=== PATIENT | male | born 1950 | race Caucasian/White ===

== ENCOUNTER 2018-02-22 04:01 | Observation (INO) | payer MEDICARE, OTHER, SELFPAY ==
[2018-02-22 04:01] VITALS: BP 134/78; PULSE 78; RESP 18; TEMP 35; O2SAT 98; BMI 30.6
--- NOTE | 2018-02-22 04:25 | CT_ITS ---
STUDY: CT BRAIN WITHOUT CONTRAST REASON FOR EXAM: Male, 67 years old. Disoriented at home, hypertension RADIATION DOSAGE (If Supplied By Facility): CTDIvol = ( 44.99 ) mGy, DLP = ( 796.11 ) mGycm TECHNIQUE: Transaxial CT imaging of the brain was performed without administration of intravenous contrast material. Individualized dose optimization techniques were used for this CT. COMPARISON: None. FINDINGS: Normal soft tissue structures. Normal calvarium. Normal size ventricles and extra-axial spaces for the patient's age. There are areas of decreased attenuation within the white matter tracts of the supratentorial brain, consistent with microvascular disease changes. Normal basal ganglia and thalami. Normal brainstem. Normal cerebellum. There is no intracranial hemorrhage. There are no findings of an acute ischemic infarction. Chronic right sphenoid sinus disease. CT/Brain/Head without Contrast IMPRESSION: No CT evidence of acute infarct or hemorrhage. Comment: If there is clinical concern for hyperacute ischemia that is not yet apparent by CT, MRI should be considered if possible. Electronically Signed: Sarbjit Partida MD at 5:08 EDT Tel , Service support ,
--- NOTE | 2018-02-22 04:25 | RAD_ITS ---
STUDY: X-RAY CHEST REASON FOR EXAM: Male, 67 years old. Syncope TECHNIQUE: Single frontal view of the chest. COMPARISON: None. FINDINGS: Azygos lobe. The lungs are clear and expanded. There is no demonstrated pleural abnormality. Normal size heart. Normal mediastinum and linh. Normal visualized pulmonary arteries. Normal visualized aortic arch and descending thoracic aorta. Normal visualized thoracic spine. Normal visualized ribs, clavicles, and shoulders. There is no demonstrated abnormality of the visualized soft tissue structures of the upper abdomen. RAD/Chest 1 View (Portable) IMPRESSION: Normal x-ray examination of the chest. Electronically Signed: Sarbjit Partida MD at 4:41 EDT Tel , Service support ,
--- NOTE | 2018-02-22 04:25 | EKG12_ITS ---
Test Reason : SYNCOPE Blood Pressure : / mmHG Vent. Rate : 077 BPM Atrial Rate : 077 BPM P-R Int : 196 ms QRS Dur : 084 ms QT Int : 406 ms P-R-T Axes : 038 012 008 degrees QTc Int : 459 ms Normal sinus rhythm Inferior infarct , age undetermined , cannot be excluded Abnormal ECG Confirmed by ISAIAH ALMEIDA, NASREEN ([id number]), slot editor OSMAR ELIZABETH ([id number] on 02/25/2018 10:20:29 AM Referred By: DEVON Confirmed By:NASREEN COLON MD
--- NOTE | 2018-02-22 04:31 | ED.RN ---
NO OLD EKGS IN MUSE
[2018-02-22 05:01] VITALS: BP 144/86; PULSE 70; RESP 20; O2SAT 99
[2018-02-22] MEDS: Aspirin 81 MG TAB.CHEW 324 MG PO (05:01)
[2018-02-22 05:11] LABS: Absolute Lymphocyte Count 1.75 X10^3/ul (0.83-4.51); Basophil# 0.03 X10^3/uL; Basophil% 0.5 % (0-1); Eosinophils% 3.1 % (0-5); Hematocrit 41.9 % (40-54); Lymphocyte # 1.75 X10^3/ul (4.0); Lymphocyte % 27.6 % (19-41); Mean Corp Hgb Conc 33.4 g/gl (32-36); Mean Corpuscular Hgb 31.3 pg (27.0-32.0); Mean Corpuscular Volume 93.5 fL (80-94); Mean Platelet Vol. 9.6 fl (6.2-12.0); Monocyte# 0.34 X10^3/uL; Monocyte% 5.4 % (0-10); Neutrophil # 4.02 X10^3/uL (2.7-7.7); Neutrophil % 63.2 % (47-70); Platelet Count 204 K/mm3 (150-450); RBC Distribution Width CV 13.4 % (11.6-14.6); RBC Distribution Width SD 44.7 fl (35.1-43.9); Red Blood Count 4.48 M/mm3 (4.6-6.2); White Blood Count 6.4 K/mm3 (4.4-11.0)
[2018-02-22 05:25] LABS: POSITIVE COUNT NO; POSITIVE DIFFERENTIAL NO; POSITIVE MORPHOLOGY NO
--- NOTE | 2018-02-22 05:27 | ED.VIS.GEN ---
History of Present Illness Chief Complaint: Syncope Informant: Patient Onset: Hours - 1 Narrative: Patient was awakened at about 3 AM with left upper extremity discomfort that did not get worse with movement. He had no chest discomfort or dyspnea at the time, but he went to the bathroom and while sitting, without straining or Valsalva maneuver, he had a near syncopal episode associated with a left sided headache, which is still present. He did not fully lose consciousness. He felt disoriented, and still does feel somewhat disoriented although he is not frankly confused. States he had a negative stress test and an echocardiogram that showed a hole in the heart and he is not sure what is to happen with follow-up. This was done in [place], he saw a correctional maintenance technician that his brother sees. The was concerned tonight about his episode, and called EMS. They performed an EKG which showed a heart rate at 54, he was symptomatic and feeling near syncopal at this time so they gave him atropine 1 mg, and the patient quickly felt much better. At this time his heart rate is in 70s. - Past Medical History (1) Hypertension Status: Chronic (2) Hyperlipidemia Status: Chronic Past Medical History - Allergies and Home Meds Allergies/Adverse Reactions: Allergies No Known Allergies Allergy (Verified 04/15/16 05:02) Primary Care Physician: Leo Doty DO [Primary Care Provider] - Lives: Spouse/ Significant Other Smoking Status: Never smoker Alcohol: None Drugs: None Review of Systems General: Reports: Malaise, Sweats. Denies: Chills, Fever Eyes: Reports: Blurred Vision - bilaterally. Denies: Diplopia ENT: Denies: Bilateral ear pain, Rhinorrhea, Sore throat Cardiovascular: Denies: Chest pain, Palpitations, Heart racing Respiratory: Denies: Dyspnea, Cough, Dyspnea on exertion Gastrointestinal: Denies: Abdominal pain, Nausea, Vomiting, Diarrhea, Melena, Hematochezia Genitourinary: Denies: Dysuria, Hematuria, Frequency Musculoskeletal: Denies: Neck pain, Back pain, Swelling, Extremity Pain Skin: Denies: Rash, Wounds Neurological: Reports: Headache, - - disoriented. Denies: Weakness - nothing focal, Numbness Endocrine: Denies: Polyuria, Polydipsia Allergy: Denies: Swelling of the mouth, Swelling of the tongue Physical Exam Vital Signs/Narrative: Vital Signs Temp Pulse Resp BP Pulse Ox 02/22/18 04:01 95.0 F L 78 18 134/78 H 98 Inital Vital Signs reviewed: Yes General: Well nourished, Well developed Head: Normocephalic, Atraumatic Eyes: Perrl, EOMI ENT: Moist mucous membranes, No rhinorrhea Neck: Supple, Nontender, No lymphadenopathy, No JVD Cardiovascular: Regular rate, Regular rhythm, No murmurs Respiratory: No distress, CTA bilaterally, Chest nontender Abdomen: Soft, Nontender, Nondistended, Normal bowel sounds Back: Nontender, Normal Inspection Extremities: Nontender, No edema Skin: Normal color, No rash Neurological: Alert, Oriented x3 - including correct month and age, Cranial nerves II-XII grossly intact, Normal Strength, Normal Sensation, Normal DTR, - - No aphasia or dysarthria, no modesto-inattention. Nml FTN. NIHSS 0. Psychological: - - anxious Diagnostic/Tx/Re-eval Impressions Brain CT 02/22/18 04:25 IMPRESSION: No CT evidence of acute infarct or hemorrhage. Comment: If there is clinical concern for hyperacute ischemia that is not yet apparent by CT, MRI should be considered if possible. Electronically Signed: Sarbjit Partida MD at 5:08 EDT Tel , Service support , Chest X-Ray 02/22/18 04:25 IMPRESSION: Normal x-ray examination of the chest. Electronically Signed: Sarbjit Partida MD at 4:41 EDT Tel , Service support , 02/22/18 04:25 Brain/Head without Contrast [CT] Stat Chest 1 View (Portable) [RAD] Stat Laboratory Results 02/22/18 02/22/18 02/22/18 04:14 04:14 04:55 WBC Cancelled Corrected WBC Cancelled RBC Cancelled Hgb Cancelled Hct Cancelled MCV Cancelled MCH Cancelled MCHC Cancelled RDW Cancelled RDW Differential Cancelled Plt Count Cancelled MPV Cancelled Immature Gran % (Auto) Cancelled Neut % (Auto) Cancelled Lymph % (Auto) Cancelled [place] % (Auto) Cancelled Eos % (Auto) Cancelled Baso % (Auto) Cancelled Immature Gran # (Auto) Cancelled Absolute Neuts (auto) Cancelled Absolute Lymphs (auto) Cancelled Absolute Monos (auto) Cancelled Total Counted Cancelled Neutrophils % (Manual) Cancelled Band Neutrophils % Cancelled Lymphocytes % (Manual) Cancelled Monocytes % (Manual) Cancelled Eosinophils % (Manual) Cancelled Basophils % (Manual) Cancelled Metamyelocytes % Cancelled Myelocytes % Cancelled Promyelocytes % Cancelled Blast Cells % Cancelled Plasma Cell % (Manual) Cancelled Other Cells % Cancelled Lymphocytes # Cancelled Nucleated RBCs/100 WBC Cancelled Differential Comment Cancelled Diff Path Review Cancelled Hypersegmented Neuts Cancelled Atypical Lymphocytes Cancelled Reactive Lymphocytes Cancelled Smudge Cells Cancelled Eosinophilia # Cancelled Basophilia # Cancelled Toxic Granulation Cancelled Dohle Bodies Cancelled Florecita Rods Cancelled Platelet Estimate Cancelled Plt Morphology Comment Cancelled RBC Morphology Cancelled Polychromasia Cancelled Hypochromasia Cancelled Poikilocytosis Cancelled Basophilic Stippling Cancelled Anisocytosis Cancelled Microcytosis Cancelled Macrocytosis Cancelled Spherocytes Cancelled Sickle Cells Cancelled Target Cells Cancelled Tear Drop Cells Cancelled Ovalocytes Cancelled Stomatocytes Cancelled Banks-[place]erry Bodies Cancelled [place] Cells Cancelled Bite Cells Cancelled Acanthocytes (Spur) Cancelled Rouleaux Cancelled Schistocytes Cancelled Sodium Cancelled 143 Potassium Cancelled 4.3 Chloride Cancelled 108 H Carbon Dioxide Cancelled 26.0 Anion Gap Cancelled 9 BUN Cancelled 23 H Creatinine Cancelled 1.24 Estim Creat Clear Calc Cancelled 59.88 Est GFR (MDRD) Af Amer Cancelled 74 Est GFR (MDRD) Non-Af Cancelled 61 BUN/Creatinine Ratio Cancelled 18.5 Glucose Cancelled 130 H Calcium Cancelled 8.8 Troponin I Cancelled < 0.015 02/22/18 04:55 WBC 6.4 Corrected WBC RBC 4.48 L Hgb 14.0 Hct 41.9 MCV 93.5 MCH 31.3 MCHC 33.4 RDW 13.4 RDW Differential 44.7 H Plt Count 204 MPV 9.6 Immature Gran % (Auto) 0.200 Neut % (Auto) 63.2 Lymph % (Auto) 27.6 [place] % (Auto) 5.4 Eos % (Auto) 3.1 Baso % (Auto) 0.5 Immature Gran # (Auto) Absolute Neuts (auto) 4.0 Absolute Lymphs (auto) 1.75 Absolute Monos (auto) Total Counted Not Reportable Neutrophils % (Manual) Band Neutrophils % Lymphocytes % (Manual) Monocytes % (Manual) Eosinophils % (Manual) Basophils % (Manual) Metamyelocytes % Myelocytes % Promyelocytes % Blast Cells % Plasma Cell % (Manual) Other Cells % Lymphocytes # Nucleated RBCs/100 WBC Differential Comment Diff Path Review Hypersegmented Neuts Atypical Lymphocytes Reactive Lymphocytes Smudge Cells Eosinophilia # Basophilia # Toxic Granulation Dohle Bodies Florecita Rods Platelet Estimate Plt Morphology Comment RBC Morphology Polychromasia Hypochromasia Poikilocytosis Basophilic Stippling Anisocytosis Microcytosis Macrocytosis Spherocytes Sickle Cells Target Cells Tear Drop Cells Ovalocytes Stomatocytes Banks-Terry Bodies [place] Cells Bite Cells Acanthocytes (Spur) Rouleaux Schistocytes Sodium Potassium Chloride Carbon Dioxide Anion Gap BUN Creatinine Estim Creat Clear Calc Est GFR (MDRD) Af Amer Est GFR (MDRD) Non-Af BUN/Creatinine Ratio Glucose Calcium Troponin I - Rhythm Strip Rhythm Strip: Sinus Rhythm Rate: 78 Ectopy: None - EKG Initial EKG Interpretation: Sinus Rhythm, No Acute Injury Pattern, - - pathologic Q waves in III only. otherwise, normal EKG. Prior: Unchanged - w/r/t EMS EKG -- exactly the same except for HR 54. - Medical Decision Making Labs are fairly unremarkable, his EKG is unremarkable, his EMS EKG showed sinus bradycardia with no changes in morphology or signs of an acute injury, his current EKG shows very similar morphology and intervals except for heart rate in the 70s. CT head shows no subarachnoid hemorrhage or other acute abnormality, chest x-ray is unremarkable. He is gradually feeling better with IV fluids here in the ER. We will attempt to get records from the hospital in [place] that he was at, as we admit him to observation on telemetry. Discussed with Dr. Seay. ED Disposition - Plan for ED Patient: Disposition: Acute Care Hospital [facility] Chief Complaint: Syncope Diagnosis: Near syncope, Symptomatic bradycardia, Anginal equivalent Referrals: Leo Doty DO [Primary Care Provider] -
--- NOTE | 2018-02-22 05:31 | ED.DCSUM_ITS ---
History of Present Illness Chief Complaint: Syncope Informant: Patient Onset: Hours - 1 Narrative: Patient was awakened at about 3 AM with left upper extremity discomfort that did not get worse with movement. He had no chest discomfort or dyspnea at the time, but he went to the bathroom and while sitting, without straining or Valsalva maneuver, he had a near syncopal episode associated with a left sided headache, which is still present. He did not fully lose consciousness. He felt disoriented, and still does feel somewhat disoriented although he is not frankly confused. States he had a negative stress test and an echocardiogram that showed a hole in the heart and he is not sure what is to happen with follow- up. This was done in [place], he saw a preparation center coordinator that his brother sees. The was concerned tonight about his episode, and called EMS. They performed an EKG which showed a heart rate at 54, he was symptomatic and feeling near syncopal at this time so they gave him atropine 1 mg, and the patient quickly felt much better. At this time his heart rate is in 70s. - Past Medical History (1) Hypertension Status: Chronic (2) Hyperlipidemia Status: Chronic Past Medical History - Allergies and Home Meds Allergies/Adverse Reactions: Allergies No Known Allergies Allergy (Verified 04/15/16 05:02) Primary Care Physician: Leo Doty DO [Primary Care Provider] - Lives: Spouse/ Significant Other Smoking Status: Never smoker Alcohol: None Drugs: None Review of Systems General: Reports: Malaise, Sweats. Denies: Chills, Fever Eyes: Reports: Blurred Vision - bilaterally. Denies: Diplopia ENT: Denies: Bilateral ear pain, Rhinorrhea, Sore throat Cardiovascular: Denies: Chest pain, Palpitations, Heart racing Respiratory: Denies: Dyspnea, Cough, Dyspnea on exertion Gastrointestinal: Denies: Abdominal pain, Nausea, Vomiting, Diarrhea, Melena, Hematochezia Genitourinary: Denies: Dysuria, Hematuria, Frequency Musculoskeletal: Denies: Neck pain, Back pain, Swelling, Extremity Pain Skin: Denies: Rash, Wounds Neurological: Reports: Headache, - - disoriented. Denies: Weakness - nothing focal, Numbness Endocrine: Denies: Polyuria, Polydipsia Allergy: Denies: Swelling of the mouth, Swelling of the tongue Physical Exam Vital Signs/Narrative: Vital Signs Temp Pulse Resp BP Pulse Ox 02/22/18 04:01 95.0 F L 78 18 134/78 H 98 Inital Vital Signs reviewed: Yes General: Well nourished, Well developed Head: Normocephalic, Atraumatic Eyes: Perrl, EOMI ENT: Moist mucous membranes, No rhinorrhea Neck: Supple, Nontender, No lymphadenopathy, No JVD Cardiovascular: Regular rate, Regular rhythm, No murmurs Respiratory: No distress, CTA bilaterally, Chest nontender Abdomen: Soft, Nontender, Nondistended, Normal bowel sounds Back: Nontender, Normal Inspection Extremities: Nontender, No edema Skin: Normal color, No rash Neurological: Alert, Oriented x3 - including correct month and age, Cranial nerves II-XII grossly intact, Normal Strength, Normal Sensation, Normal DTR, - - No aphasia or dysarthria, no modesto-inattention. Nml FTN. NIHSS 0. Psychological: - - anxious Diagnostic/Tx/Re-eval Impressions Brain CT 02/22/18 04:25 IMPRESSION: No CT evidence of acute infarct or hemorrhage. Comment: If there is clinical concern for hyperacute ischemia that is not yet apparent by CT, MRI should be considered if possible. Electronically Signed: Sarbjit Partida MD at 5:08 EDT Tel , Service support , Chest X-Ray 02/22/18 04:25 IMPRESSION: Normal x-ray examination of the chest. Electronically Signed: Srabjit Partida MD at 4:41 EDT Tel , Service support , 02/22/18 04:25 Brain/Head without Contrast [CT] Stat Chest 1 View (Portable) [RAD] Stat Laboratory Results 02/22/18 02/22/18 02/22/18 04:14 04:14 04:55 WBC Cancelled Corrected WBC Cancelled RBC Cancelled Hgb Cancelled Hct Cancelled MCV Cancelled MCH Cancelled MCHC Cancelled RDW Cancelled RDW Differential Cancelled Plt Count Cancelled MPV Cancelled Immature Gran % (Auto) Cancelled Neut % (Auto) Cancelled Lymph % (Auto) Cancelled [place] % (Auto) Cancelled Eos % (Auto) Cancelled Baso % (Auto) Cancelled Immature Gran # (Auto) Cancelled Absolute Neuts (auto) Cancelled Absolute Lymphs (auto) Cancelled Absolute Monos (auto) Cancelled Total Counted Cancelled Neutrophils % (Manual) Cancelled Band Neutrophils % Cancelled Lymphocytes % (Manual) Cancelled Monocytes % (Manual) Cancelled Eosinophils % (Manual) Cancelled Basophils % (Manual) Cancelled Metamyelocytes % Cancelled Myelocytes % Cancelled Promyelocytes % Cancelled Blast Cells % Cancelled Plasma Cell % (Manual) Cancelled Other Cells % Cancelled Lymphocytes # Cancelled Nucleated RBCs/100 WBC Cancelled Differential Comment Cancelled Diff Path Review Cancelled Hypersegmented Neuts Cancelled Atypical Lymphocytes Cancelled Reactive Lymphocytes Cancelled Smudge Cells Cancelled Eosinophilia # Cancelled Basophilia # Cancelled Toxic Granulation Cancelled Dohle Bodies Cancelled Florecita Rods Cancelled Platelet Estimate Cancelled Plt Morphology Comment Cancelled RBC Morphology Cancelled Polychromasia Cancelled Hypochromasia Cancelled Poikilocytosis Cancelled Basophilic Stippling Cancelled Anisocytosis Cancelled Microcytosis Cancelled Macrocytosis Cancelled Spherocytes Cancelled Sickle Cells Cancelled Target Cells Cancelled Tear Drop Cells Cancelled Ovalocytes Cancelled Stomatocytes Cancelled Banks-[place] Bodies Cancelled [place] Cells Cancelled Bite Cells Cancelled Acanthocytes (Spur) Cancelled Rouleaux Cancelled Schistocytes Cancelled Sodium Cancelled 143 Potassium Cancelled 4.3 Chloride Cancelled 108 H Carbon Dioxide Cancelled 26.0 Anion Gap Cancelled 9 BUN Cancelled 23 H Creatinine Cancelled 1.24 Estim Creat Clear Calc Cancelled 59.88 Est GFR (MDRD) Af Amer Cancelled 74 Est GFR (MDRD) Non-Af Cancelled 61 BUN/Creatinine Ratio Cancelled 18.5 Glucose Cancelled 130 H Calcium Cancelled 8.8 Troponin I Cancelled < 0.015 02/22/18 04:55 WBC 6.4 Corrected WBC RBC 4.48 L Hgb 14.0 Hct 41.9 MCV 93.5 MCH 31.3 MCHC 33.4 RDW 13.4 RDW Differential 44.7 H Plt Count 204 MPV 9.6 Immature Gran % (Auto) 0.200 Neut % (Auto) 63.2 Lymph % (Auto) 27.6 [place] % (Auto) 5.4 Eos % (Auto) 3.1 Baso % (Auto) 0.5 Immature Gran # (Auto) Absolute Neuts (auto) 4.0 Absolute Lymphs (auto) 1.75 Absolute Monos (auto) Total Counted Not Reportable Neutrophils % (Manual) Band Neutrophils % Lymphocytes % (Manual) Monocytes % (Manual) Eosinophils % (Manual) Basophils % (Manual) Metamyelocytes % Myelocytes % Promyelocytes % Blast Cells % Plasma Cell % (Manual) Other Cells % Lymphocytes # Nucleated RBCs/100 WBC Differential Comment Diff Path Review Hypersegmented Neuts Atypical Lymphocytes Reactive Lymphocytes Smudge Cells Eosinophilia # Basophilia # Toxic Granulation Dohle Bodies Florecita Rods Platelet Estimate Plt Morphology Comment RBC Morphology Polychromasia Hypochromasia Poikilocytosis Basophilic Stippling Anisocytosis Microcytosis Macrocytosis Spherocytes Sickle Cells Target Cells Tear Drop Cells Ovalocytes Stomatocytes Banks-[place] Bodies [place] Cells Bite Cells Acanthocytes (Spur) Rouleaux Schistocytes Sodium Potassium Chloride Carbon Dioxide Anion Gap BUN Creatinine Estim Creat Clear Calc Est GFR (MDRD) Af Amer Est GFR (MDRD) Non-Af BUN/Creatinine Ratio Glucose Calcium Troponin I - Rhythm Strip Rhythm Strip: Sinus Rhythm Rate: 78 Ectopy: None - EKG Initial EKG Interpretation: Sinus Rhythm, No Acute Injury Pattern, - - pathologic Q waves in III only. otherwise, normal EKG. Prior: Unchanged - w/r/t EMS EKG -- exactly the same except for HR 54. - Medical Decision Making Labs are fairly unremarkable, his EKG is unremarkable, his EMS EKG showed sinus bradycardia with no changes in morphology or signs of an acute injury, his current EKG shows very similar morphology and intervals except for heart rate in the 70s. CT head shows no subarachnoid hemorrhage or other acute abnormality, chest x-ray is unremarkable. He is gradually feeling better with IV fluids here in the ER. We will attempt to get records from the hospital in [place] that he was at, as we admit him to observation on telemetry. Discussed with Dr. Seay. ED Disposition - Plan for ED Patient: Disposition: Acute Care Hospital [facility] Chief Complaint: Syncope Diagnosis: Near syncope, Symptomatic bradycardia, Anginal equivalent Referrals: Leo Doty DO [Primary Care Provider] -
[2018-02-22 05:33] LABS: Anion Gap 9 (5-15); BUN 23 mg/dL (7-18); BUN/Creat Ratio 18.5 RATIO (10-20); Calcium,Total 8.8 mg/dL (8.5-10.1); Chloride 108 mmol/L (98-107); Creatinine, Serum 1.24 mg/dL (0.70-1.30); EST Glomerular Filtration Rate 61 mL/min (>60); Est Glom Filt Rate - Afr Amer 74 mL/min (>60); Estimated Creatinine Clearance 59.88 ml/min; Glucose 130 mg/dL (74-106); Potassium 4.3 mmol/L (3.5-5.1); Sodium Level 143 mmol/L (136-145)
--- NOTE | 2018-02-22 05:45 | HP.PCM_ITS ---
Problem List (1) Near syncope Status: Acute History of Present Illness Date of Admission: 02/22/18 Chief Complaint: Near syncope The patient is a 67 year old M with a history of hypertension, hyperlipidemia and abdominal aortic aneurysm. He was admitted through the ED on 02/22/2018 with complaint of near syncope in the early hours of the morning. According to patient, around 3 AM he was woken up with a headache which is global in nature. He decided to go use the restroom and while sitting on the toilet, he felt lightheaded and dizzy and slumped to the floor. He did not lose consciousness but said he felt very very weak. He denied any antecedent fever or chills, any cough or chest pain, any palpitations, any shortness of breath, any diarrhea vomiting. His called the EMS and on arrival, they found him to be bradycardic and hypotensive. He was given a dose of atropine and bradycardia resolved. According to patient, a few weeks ago he saw a internal communications intern in [place] to follow-up his abdominal aortic aneurysm and he had a 2D echo done with bubble contrast and was told that he had a hole in heart. He states he was referred to a neurologist subsequently but is yet to see him. Vitals in the ED was significant for pulse rate of 70 and blood pressure of 1 4486 and he was saturating 99% on a liter of oxygen. Brain CT was negative for any acute intracranial pathology. CBC and BMP done within normal limits. Is been admitted to be worked up for near syncope. [] Past Medical History Past Medical History (Chronic Problems): Chronic Problems Hypertension (Chronic) Hyperlipidemia (Chronic) Allergies No Known Allergies Allergy (Verified 04/15/16 05:02) Home Medications: Ambulatory Orders Medication Instructions Recorded Atorvastatin Calcium [Lipitor] 20 mg PO QHS 04/12/16 Losartan/Hydrochlorothiazide 1 each PO DAILY 04/12/16 [Losartan-Hctz 50-12.5 mg Tab] Aspirin [Aspirin, Baby] 81 mg PO DAILY@0800 02/22/18 Surgical History: tonsillectomy - in childhood Psychiatric History: No pertinent psych hx Lives: Spouse/ Significant Other Smoking Status: Never smoker Alcohol: None Drugs: None - *Family History Sibling History Items: High Cholesterol, Heart Disease, Stroke Paternal History Items: Heart Disease, Hypertension Review of Systems Constitutional: Reports: Malaise, Weakness. Denies: Chills, Fever, Weight Change Eyes: Denies: Blurred vision HEENT: Denies: Head Aches, Sinus Congestion, Sinus Drainage Cardiovascular: Reports: Light Headedness, - - near syncope. Denies: Chest Pain, Chest Pressure, Chest Tightness, Edema, Heaviness, Orthopnea, Palpitations, Paroxysmal Noc. Dyspnea, Syncope Respiratory: Denies: Cough, Shortness of Breath, Shortness of breath at rest, Shortness of breath upon exertion, Sputum production Gastrointestinal: Denies: Abdominal Pain, Nausea, Vomiting Genitourinary: Denies: Dysuria Musculoskeletal: Denies: Joint Pain, Joint Tenderness Skin: Denies: Rash, Wounds Neurological: Reports: Confusion, - - near syncope. Denies: Focal weakness, Numbness, Tingling Psychiatric: Denies: Anxiety, Depression, Homicidal Ideations, Suicidal Ideations Hematologic/ Lymphatic: Denies: Easy Bruising, Easy Bleeding VTE Information - Inpt Only VTE Present on Admission: No VTE Pharm Prophylaxis ordered?: Yes Patient Problems: Active and Suspected Problems Near syncope (Acute) Symptomatic bradycardia (Acute) Anginal equivalent (Acute) Near syncope (Acute) - Physical Exam General: Alert, Oriented x3, Cooperative, No apparent distress HEENT: Atraumatic, PERRLA, EOMI, Normocephalic Oral: Moist Mucosa Neck: Supple, No JVD, Negative Carotid Bruits Lungs: Clear to auscultation, Normal air movement, No rhonchi, No wheeze, No rales Cardiovascular: Regular rate, Regular Rhythm, Normal S1, Normal S2, No murmurs Abdomen: Bowel Sounds Present, Soft, Non Tender, Non-Distended, No Hepato- splenomegaly Extremities: No clubbing, No cyanosis, No edema, Capillary Refill Less than 3 Seconds Skin: No rashes, No breakdown Musculoskeletal: No Tenderness to Palpation of Joints or Extremities Lymphatic: No Cervical, Supraclavicular, or Inguinal Adenopathy Neurological: Cranial nerves II-XII grossly intact, Neuro grossly intact, Motor Exam 5/5 strength throughout Psych/Mental Status: Normal Affect, Appropriate, Alert and oriented to time, place, person, mood and affect Vital Signs Temp Pulse Resp BP Pulse Ox 95.0 F L 70 20 H 144/86 H 99 02/22/18 04:01 02/22/18 05:01 02/22/18 05:01 02/22/18 05:01 02/22/18 05:01 Oxygen Delivery Method Room Air Weight: 219 lb 9.286 oz Body Mass Index (BMI) 30.6 Laboratory Tests Past 24 Hrs 02/22/18 02/22/18 02/22/18 04:14 04:14 04:55 WBC Cancelled Corrected WBC Cancelled RBC Cancelled Hgb Cancelled Hct Cancelled MCV Cancelled MCH Cancelled MCHC Cancelled RDW Cancelled RDW Differential Cancelled Plt Count Cancelled MPV Cancelled Immature Gran % (Auto) Cancelled Neut % (Auto) Cancelled Lymph % (Auto) Cancelled [place]uster % (Auto) Cancelled Eos % (Auto) Cancelled Baso % (Auto) Cancelled Immature Gran # (Auto) Cancelled Absolute Neuts (auto) Cancelled Absolute Lymphs (auto) Cancelled Absolute Monos (auto) Cancelled Total Counted Cancelled Neutrophils % (Manual) Cancelled Band Neutrophils % Cancelled Lymphocytes % (Manual) Cancelled Monocytes % (Manual) Cancelled Eosinophils % (Manual) Cancelled Basophils % (Manual) Cancelled Metamyelocytes % Cancelled Myelocytes % Cancelled Promyelocytes % Cancelled Blast Cells % Cancelled Plasma Cell % (Manual) Cancelled Other Cells % Cancelled Lymphocytes # Cancelled Nucleated RBCs/100 WBC Cancelled Differential Comment Cancelled Diff Path Review Cancelled Hypersegmented Neuts Cancelled Atypical Lymphocytes Cancelled Reactive Lymphocytes Cancelled Smudge Cells Cancelled Eosinophilia # Cancelled Basophilia # Cancelled Toxic Granulation Cancelled Dohle Bodies Cancelled Florecita Rods Cancelled Platelet Estimate Cancelled Plt Morphology Comment Cancelled RBC Morphology Cancelled Polychromasia Cancelled Hypochromasia Cancelled Poikilocytosis Cancelled Basophilic Stippling Cancelled Anisocytosis Cancelled Microcytosis Cancelled Macrocytosis Cancelled Spherocytes Cancelled Sickle Cells Cancelled Target Cells Cancelled Tear Drop Cells Cancelled Ovalocytes Cancelled Stomatocytes Cancelled [place] Bodies Cancelled Sarmad Cells Cancelled Bite Cells Cancelled Acanthocytes (Spur) Cancelled Rouleaux Cancelled Schistocytes Cancelled Sodium Cancelled 143 Potassium Cancelled 4.3 Chloride Cancelled 108 H Carbon Dioxide Cancelled 26.0 Anion Gap Cancelled 9 BUN Cancelled 23 H Creatinine Cancelled 1.24 Estim Creat Clear Calc Cancelled 59.88 Est GFR (MDRD) Af Amer Cancelled 74 Est GFR (MDRD) Non-Af Cancelled 61 BUN/Creatinine Ratio Cancelled 18.5 Glucose Cancelled 130 H Calcium Cancelled 8.8 Troponin I Cancelled < 0.015 02/22/18 04:55 WBC 6.4 Corrected WBC RBC 4.48 L Hgb 14.0 Hct 41.9 MCV 93.5 MCH 31.3 MCHC 33.4 RDW 13.4 RDW Differential 44.7 H Plt Count 204 MPV 9.6 Immature Gran % (Auto) 0.200 Neut % (Auto) 63.2 Lymph % (Auto) 27.6 Custer % (Auto) 5.4 Eos % (Auto) 3.1 Baso % (Auto) 0.5 Immature Gran # (Auto) Absolute Neuts (auto) 4.0 Absolute Lymphs (auto) 1.75 Absolute Monos (auto) Total Counted Not Reportable Neutrophils % (Manual) Band Neutrophils % Lymphocytes % (Manual) Monocytes % (Manual) Eosinophils % (Manual) Basophils % (Manual) Metamyelocytes % Myelocytes % Promyelocytes % Blast Cells % Plasma Cell % (Manual) Other Cells % Lymphocytes # Nucleated RBCs/100 WBC Differential Comment Diff Path Review Hypersegmented Neuts Atypical Lymphocytes Reactive Lymphocytes Smudge Cells Eosinophilia # Basophilia # Toxic Granulation Dohle Bodies Florecita Rods Platelet Estimate Plt Morphology Comment RBC Morphology Polychromasia Hypochromasia Poikilocytosis Basophilic Stippling Anisocytosis Microcytosis Macrocytosis Spherocytes Sickle Cells Target Cells Tear Drop Cells Ovalocytes Stomatocytes [place] Bodies Sarmad Cells Bite Cells Acanthocytes (Spur) Rouleaux Schistocytes Sodium Potassium Chloride Carbon Dioxide Anion Gap BUN Creatinine Estim Creat Clear Calc Est GFR (MDRD) Af Amer Est GFR (MDRD) Non-Af BUN/Creatinine Ratio Glucose Calcium Troponin I Diagnostic Data Brain CT 02/22/18 04:25 IMPRESSION: No CT evidence of acute infarct or hemorrhage. Comment: If there is clinical concern for hyperacute ischemia that is not yet apparent by CT, MRI should be considered if possible. Electronically Signed: Sarbjit Partida MD at 5:08 EDT Tel , Service support , Chest X-Ray 02/22/18 04:25 IMPRESSION: Normal x-ray examination of the chest. Electronically Signed: Sarbjit Partida MD at 4:41 EDT Tel , Service support , Assessment/Plan All Active Problems Near syncope (Acute) Symptomatic bradycardia (Acute) Anginal equivalent (Acute) Near syncope (Acute) 67 y/o male presenting with a complaint of near syncope 1.Near syncope due to bradycardia * HR was down in 50s when EMS arrived and it resolved with administration of atropine * HR has been WNL since arrival in ED * EKG showed NSR with no acute ST changes * CT head was negative for any acute intracranial pathology * admit to PCU with telemetry * got echo done recently at [facility] in [place] by Dr Kana Cordova; says he was told he has hole in heart- ?PDA; * [facility] records checked: had intermittent stress test done on 02/02/[address] [place] [address] Cordova which was negative. * 2D echo(01/01/18) accessed from [facility]- done by Dr Kana Cordvoa in [place]: * LVEF of 60-65%, with normal diastolic function, normal right atrial size and right ventricular structure and function. Positive bubble study. Mild aortic root dilatation and mild left atrial enlargement. Trivial MR and trivial TR. No evidence of aortic stenosis. * consult cardiology * NIHSS was 2 (age >69 and initial BP>140/90) * to consider getting MRI of brain and neurology consult also. * on aspirin 81mg daily * check orthostatics * fall precautions * 2. Hypertension: fairly controlled for age. On losartan/HCTZ. 3. Hyperlipidemia: on atorvastatin 20mg qhs. Will check lipid panel 4. Abdominal aortic aneurysm: chronic. Says he followed up with internal communications intern in [place] mentioned above. Told it is not big enough for surgical intervention. DVT prophylaxis: heparin Code status: full code. Code Visit Inpatient E&M: 79720 Init Hosp L3
[2018-02-22 06:53] VITALS: BMI 29.7
[2018-02-22 06:53] LABS: Cholesterol 159 mg/dL (200); High Density Lipoprotein 42 mg/dL; Triglycerides 101 mg/dL; Very Low Density Lipoprotein 20 mg/dL (5-40)
[2018-02-22 06:58] VITALS: BP 163/89; PULSE 69; PULSE 72; RESP 16; TEMP 36.4; O2SAT 97
[2018-02-22 07:03] VITALS: BMI 29.8
[2018-02-22 08:33] LABS: Hemoglobin A1c 6.1 % (4.2-6.3)
--- NOTE | 2018-02-22 10:00 | ECHOD_ITS ---
Reason For Study: Arrhythmia Procedure This was a 2D Doppler, Color Flow transthoracic echocardiogram. Exam performed portable in patient room. Left Ventricle Normal LV size. Mild concentric left ventricular hypertrophy. Left ventricular systolic function is normal. The estimated ejection fraction is 60 %. Normal diastology for age. No regional wall motion abnormalities noted. Right Ventricle Normal RV size. Normal systolic function. Atria Normal left atrium. Normal right atrium. Patent foramen ovale. Mitral Valve Normal mitral valve. Mild (1+) eccentric mitral valve insufficiency. Tricuspid Valve Normal tricuspid valve. Mild (1+) tricuspid valve insufficiency. Aortic Valve Normal aortic valve. Pulmonic Valve Normal pulmonic valve. Great Vessels Mild to moderately dilated aortic root. The pulmonary artery is normal size. Normal inferior vena cava. Pericardium/Pleural No pericardial effusion. Medication Performed a rapid injection of agitated mix of 9 cc saline and 1cc air to assess for atrial septal defect. MMode/2D Measurements & Calculations LVIDd: 4.5 cm IVSd: 1.5 cm Ao root diam: 4.1 cm LVIDs: 2.5 cm LVPWd: 1.2 cm LA dimension: 3.4 cm RVDd: 3.3 cm FS: 45.6 % LAV(MOD-bp): 50.1 ml LAV(MOD-bp) Indexed: 23.2 ml/m2 LA A4 area: 21.9 cm2 LAV(MOD-sp2): 33.9 ml LAV(MOD-sp4): 66.7 ml Time Measurements MV dec time: 0.16 sec Doppler Measurements & Calculations MV E max truman: 83.5 cm/sec Lat Peak E' Truman: 12.4 cm/sec Med Peak E' Truman: 9.6 cm/sec MV A max truman: 66.1 cm/sec E/E' lat: 6.7 E/E' med: 8.7 MV E/A: 1.3 MV V2 max: 79.6 cm/sec MV P1/2t max truman: 80.9 cm/sec Ao V2 max: 129.8 cm/sec MV max P.5 mmHg MV P1/2t: 57.0 msec Ao max P.7 mmHg MV V2 mean: 43.9 cm/sec MV dec slope: 416.0 cm/sec2 Ao V2 mean: 87.7 cm/sec MV mean P.98 mmHg MVA(P1/2t): 3.9 cm2 Ao mean P.4 mmHg MV V2 VTI: 20.6 cm Ao V2 VTI: 27.1 cm LV V1 max: 99.3 cm/sec MR max truman: 497.0 cm/sec PA V2 max: 103.0 cm/sec LV V1 max P.9 mmHg MR max P.8 mmHg LV V1 mean P.2 mmHg MR mean truman: 400.8 cm/sec LV V1 mean: 70.6 cm/sec MR mean P.1 mmHg LV V1 VTI: 22.5 cm MR VTI: 180.9 cm TR max truman: 243.1 cm/sec TR max P.6 mmHg Interpretation Summary Normal LV size. Mild concentric left ventricular hypertrophy. Left ventricular systolic function is normal. The estimated ejection fraction is 60 %. Normal diastology for age. Patent foramen ovale. Ordering Physician: Everett Mas Referring Physician: Leo Doty Performed By: Leno Avery RCS
--- NOTE | 2018-02-22 10:02 | PCM.CONS.C ---
Reason for Consult Date of Consultation: 02/22/18 Reason for Consultation: Syncope History of Present Illness: The patient is a 67 year old M with a history of hypertension, hyperlipidemia and abdominal aortic aneurysm. He was admitted through the ED on 02/22/2018 with complaint of near syncope in the early hours of the morning. According to patient, around 3 AM he was woken up with a headache which is global in nature. He decided to go use the restroom and while sitting on the toilet, he felt lightheaded and dizzy and slumped to the floor. He did not lose consciousness but said he felt very very weak. He denied any antecedent fever or chills, any cough or chest pain, any palpitations, any shortness of breath, any diarrhea vomiting. His called the EMS and on arrival, they found him to be bradycardic and hypotensive. He was given a dose of atropine and bradycardia resolved. According to patient, a few weeks ago he saw a children teacher in [place] to follow-up his abdominal aortic aneurysm and he had a 2D echo done with bubble contrast and was told that he had a hole in heart. He states he was referred to a neurologist subsequently but is yet to see him. Vitals in the ED was significant for pulse rate of 70 and blood pressure of 1 44/86 and he was saturating 99% on a liter of oxygen. Brain CT was negative for any acute intracranial pathology. CBC and BMP done within normal limits. Is been admitted to be worked up for near syncope. [Cardiology was asked to see him in consultation for the above. He denies any symptoms at this time and his telemetry monitoring has been normal.] Past Medical History Allergies/Adverse Reactions: Allergies No Known Allergies Allergy (Verified 04/15/16 05:02) Home Medications: Ambulatory Orders Medication Instructions Recorded Atorvastatin Calcium [Lipitor] 10 mg PO DAILY 04/12/16 Amlodipine [Norvasc] 5 mg PO DAILY 02/22/18 Aspirin [Aspirin, Baby] 81 mg PO DAILY@0800 02/22/18 Past Medical History (Chronic Problems): Chronic Problems Hypertension (Chronic) Hyperlipidemia (Chronic) Surgical History: tonsillectomy - in childhood Psychiatric History: No pertinent psych hx - *Family History Sibling History Items: High Cholesterol, Heart Disease, Stroke Paternal History Items: Heart Disease, Hypertension Lives: Spouse/ Significant Other Smoking Status: Never smoker Alcohol: None Drugs: None Review of Systems - Review of Systems General: Denies: Fever, Night Sweats, Fatigue Cardiovascular: Reports: Near Syncope. Denies: Chest Discomfort, Shortness of Breath, Orthopnea, PND, Peripheral Edema, Palpitations, Lightheadedness, Dizziness, Syncope Respiratory: Denies: Cough, Sputum Production, Hemoptysis Gastrointestinal: Denies: Hematemesis, Hematochezia, Melena Genitourinary: Denies: Dysuria, Hematuria Skin: Denies: Rash Subjectve: Pleasant gentleman in no apparent distress Objective: Vital Signs Temp Pulse Resp BP Pulse Ox 97.6 F L 69 16 163/89 H 97 02/22/18 06:58 02/22/18 06:58 02/22/18 06:58 02/22/18 06:58 02/22/18 06:58 Oxygen Delivery Method Room Air Weight: 213 lb 6.519 oz Body Mass Index (BMI) 29.7 General: Awake, Alert, Oriented x 3 HEENT: PERRL, EOMI, Sclera Non Icteric Neck: Supple, Good ROM, No Lymph Node Enlargement Lungs: Clear to auscultation Cardiovascular: Regular Rhythm, Normal S1, Normal S2, No Murmurs, No Rubs, No Gallops Vascular: No Carotid Bruits, Normal Femoral Pulses, Normal Radial Pulses, Normal Dorsalis Pedal Pulse, Normal Posterior Tibial Pulses Abdomen: Bowel Sounds Present, Soft, Non Tender, No HSM, No Organomegaly Extremities: No Cyanosis, No Clubbing, No edema Neurological: No Focal Motor or Sensory Deficit 02/22/18 04:55: Sodium 143, Potassium 4.3, Chloride 108 H, Carbon Dioxide 26.0, Anion Gap 9, BUN 23 H, Creatinine 1.24, Est GFR (MDRD) Af Amer 74, Est GFR (MDRD) Non-Af 61, BUN/Creatinine Ratio 18.5, Glucose 130 H, Calcium 8.8, Troponin I < 0.015 02/22/18 04:55: WBC 6.4, RBC 4.48 L, Hgb 14.0, Hct 41.9, MCV 93.5, MCH 31.3, MCHC 33.4, RDW 13.4, RDW Differential 44.7 H, Plt Count 204, MPV 9.6, Immature Gran % (Auto) 0.200, Neut % (Auto) 63.2, Lymph % (Auto) 27.6, [place] % (Auto) 5.4, Eos % (Auto) 3.1, Baso % (Auto) 0.5, Absolute Neuts (auto) 4.0, Total Counted Not Reportable 02/22/18 04:55: Triglycerides 101, Cholesterol 159, LDL Cholesterol 97, VLDL Cholesterol 20, HDL Cholesterol 42 02/22/18 04:55: Hemoglobin A1c 6.1 Rhythm: EKG: Rate of 70 bpm. Assessment/Plan 1. Syncopal event He actually did not have jeanna syncope but became presyncopal. The above was likely secondary to a vasovagal or vasodepressor response. He has not had any arrhythmias since being admitted. He is somewhat concerned about this PFO and my recommendation is for us to repeat his echocardiogram with bubble contrast study to see the extent of the above. I do not think that this is related to the syncope however. My recommendation would be to continue with expectant management increase fluid intake. Blood pressure medications can be adjusted with reduction of his amlodipine. 2. Hypertension Blood pressure appears to be under decent control. Continue to monitor. Thank you for allowing me to participate in the care of your patient. Please don't hesitate to call if any issues arise
--- NOTE | 2018-02-22 10:07 | CON.PCM_ITS ---
Reason for Consult Date of Consultation: 02/22/18 Reason for Consultation: Syncope History of Present Illness: The patient is a 67 year old M with a history of hypertension, hyperlipidemia and abdominal aortic aneurysm. He was admitted through the ED on 02/22/2018 with complaint of near syncope in the early hours of the morning. According to patient, around 3 AM he was woken up with a headache which is global in nature. He decided to go use the restroom and while sitting on the toilet, he felt lightheaded and dizzy and slumped to the floor. He did not lose consciousness but said he felt very very weak. He denied any antecedent fever or chills, any cough or chest pain, any palpitations, any shortness of breath, any diarrhea vomiting. His called the EMS and on arrival, they found him to be bradycardic and hypotensive. He was given a dose of atropine and bradycardia resolved. According to patient, a few weeks ago he saw a industrial psychologist in [place] to follow-up his abdominal aortic aneurysm and he had a 2D echo done with bubble contrast and was told that he had a hole in heart. He states he was referred to a neurologist subsequently but is yet to see him. Vitals in the ED was significant for pulse rate of 70 and blood pressure of 1 44/86 and he was saturating 99% on a liter of oxygen. Brain CT was negative for any acute intracranial pathology. CBC and BMP done within normal limits. Is been admitted to be worked up for near syncope. [Cardiology was asked to see him in consultation for the above. He denies any symptoms at this time and his telemetry monitoring has been normal.] Past Medical History Allergies/Adverse Reactions: Allergies No Known Allergies Allergy (Verified 04/15/16 05:02) Home Medications: Ambulatory Orders Medication Instructions Recorded Atorvastatin Calcium [Lipitor] 10 mg PO DAILY 04/12/16 Amlodipine [Norvasc] 5 mg PO DAILY 02/22/18 Aspirin [Aspirin, Baby] 81 mg PO DAILY@0800 02/22/18 Past Medical History (Chronic Problems): Chronic Problems Hypertension (Chronic) Hyperlipidemia (Chronic) Surgical History: tonsillectomy - in childhood Psychiatric History: No pertinent psych hx - *Family History Sibling History Items: High Cholesterol, Heart Disease, Stroke Paternal History Items: Heart Disease, Hypertension Lives: Spouse/ Significant Other Smoking Status: Never smoker Alcohol: None Drugs: None Review of Systems - Review of Systems General: Denies: Fever, Night Sweats, Fatigue Cardiovascular: Reports: Near Syncope. Denies: Chest Discomfort, Shortness of Breath, Orthopnea, PND, Peripheral Edema, Palpitations, Lightheadedness, Dizziness, Syncope Respiratory: Denies: Cough, Sputum Production, Hemoptysis Gastrointestinal: Denies: Hematemesis, Hematochezia, Melena Genitourinary: Denies: Dysuria, Hematuria Skin: Denies: Rash Subjectve: Pleasant gentleman in no apparent distress Objective: Vital Signs Temp Pulse Resp BP Pulse Ox 97.6 F L 69 16 163/89 H 97 02/22/18 06:58 02/22/18 06:58 02/22/18 06:58 02/22/18 06:58 02/22/18 06:58 Oxygen Delivery Method Room Air Weight: 213 lb 6.519 oz Body Mass Index (BMI) 29.7 General: Awake, Alert, Oriented x 3 HEENT: PERRL, EOMI, Sclera Non Icteric Neck: Supple, Good ROM, No Lymph Node Enlargement Lungs: Clear to auscultation Cardiovascular: Regular Rhythm, Normal S1, Normal S2, No Murmurs, No Rubs, No Gallops Vascular: No Carotid Bruits, Normal Femoral Pulses, Normal Radial Pulses, Normal Dorsalis Pedal Pulse, Normal Posterior Tibial Pulses Abdomen: Bowel Sounds Present, Soft, Non Tender, No HSM, No Organomegaly Extremities: No Cyanosis, No Clubbing, No edema Neurological: No Focal Motor or Sensory Deficit 02/22/18 04:55: Sodium 143, Potassium 4.3, Chloride 108 H, Carbon Dioxide 26.0, Anion Gap 9, BUN 23 H, Creatinine 1.24, Est GFR (MDRD) Af Amer 74, Est GFR (MDRD) Non-Af 61, BUN/Creatinine Ratio 18.5, Glucose 130 H, Calcium 8.8, Troponin I < 0.015 02/22/18 04:55: WBC 6.4, RBC 4.48 L, Hgb 14.0, Hct 41.9, MCV 93.5, MCH 31.3, MCHC 33.4, RDW 13.4, RDW Differential 44.7 H, Plt Count 204, MPV 9.6, Immature Gran % (Auto) 0.200, Neut % (Auto) 63.2, Lymph % (Auto) 27.6, Mckenzie % (Auto) 5.4, Eos % (Auto) 3.1, Baso % (Auto) 0.5, Absolute Neuts (auto) 4.0, Total Counted Not Reportable 02/22/18 04:55: Triglycerides 101, Cholesterol 159, LDL Cholesterol 97, VLDL Cholesterol 20, HDL Cholesterol 42 02/22/18 04:55: Hemoglobin A1c 6.1 Rhythm: EKG: Rate of 70 bpm. Assessment/Plan 1. Syncopal event * He actually did not have jeanna syncope but became presyncopal. The above was likely secondary to a vasovagal or vasodepressor response. He has not had any arrhythmias since being admitted. He is somewhat concerned about this PFO and my recommendation is for us to repeat his echocardiogram with bubble contrast study to see the extent of the above. I do not think that this is related to the syncope however. * My recommendation would be to continue with expectant management increase fluid intake. * Blood pressure medications can be adjusted with reduction of his amlodipine. * 2. Hypertension * Blood pressure appears to be under decent control. * Continue to monitor. * * Thank you for allowing me to participate in the care of your patient. Please don't hesitate to call if any issues arise
[2018-02-22 10:30] VITALS: BP 149/72; PULSE 67; RESP 18; TEMP 36.6; O2SAT 96
[2018-02-22 10:58] VITALS: PULSE 59
[2018-02-22] MEDS: Enoxaparin 40 MG/0.4 ML Syringe SC (11:17)
[2018-02-22] MEDS: Losartan Potassium 100 MG Tablet PO (11:17)
[2018-02-22] MEDS: Aspirin 81 MG TAB.CHEW PO (11:17)
--- NOTE | 2018-02-22 13:56 | PCM.DC ---
- Discharge Diagnoses Current Active Problems: Current Active and Chronic Problems Hypertension (Chronic) Hyperlipidemia (Chronic) Near syncope (Acute) Symptomatic bradycardia (Acute) Anginal equivalent (Acute) Near syncope (Acute) You will use the following diet at home:: Cardiac Your food should be the consistency of: Regular Discharge Activity: May Not Drive - for few days till he better of dizziness Call your doctor if you observe: Fever of 101 or Higher, Shortness of breath, Dizziness, Swelling in the ankles, Chest pain, Increased palpitations (irregular heartbeat) Additional Instructions: Follow-up the his diesel mechanic helper in [place] for AAA and small PFO Allergies/Adverse Reactions: Allergies No Known Allergies Allergy (Verified 04/15/16 05:02) Medications to take at Discharge Aspirin [Aspirin, Baby] 81 mg PO DAILY@0800 02/22/18 Atorvastatin Calcium [Lipitor] 20 mg PO QHS #30 tab 02/22/18 Losartan Potassium [Cozaar] 100 mg PO DAILY #30 tab 02/22/18 The following prescriptions were given: Atorvastatin Calcium [Lipitor] 20 mg PO QHS #30 tab Losartan Potassium [Cozaar] 100 mg PO DAILY #30 tab Primary Care Physician: Leo Doty DO [Primary Care Provider] - Please follow up with your Primary Care Physician in: in 2 weeks Test Results: Test results from this visit will be discussed in further detail at your follow-up appointment, if applicable.
--- NOTE | 2018-02-22 13:59 | DCINST_ITS ---
- Discharge Diagnoses Current Active Problems: Current Active and Chronic Problems Hypertension (Chronic) Hyperlipidemia (Chronic) Near syncope (Acute) Symptomatic bradycardia (Acute) Anginal equivalent (Acute) Near syncope (Acute) You will use the following diet at home:: Cardiac Your food should be the consistency of: Regular Discharge Activity: May Not Drive - for few days till he better of dizziness Call your doctor if you observe: Fever of 101 or Higher, Shortness of breath, Dizziness, Swelling in the ankles, Chest pain, Increased palpitations (irregular heartbeat) Additional Instructions: Follow-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 [place] for AAA and small PFO Allergies/Adverse Reactions: Allergies No Known Allergies Allergy (Verified 04/15/16 05:02) Medications to take at Discharge Aspirin [Aspirin, Baby] 81 mg PO DAILY@0800 02/22/18 Atorvastatin Calcium [Lipitor] 20 mg PO QHS #30 tab 02/22/18 Losartan Potassium [Cozaar] 100 mg PO DAILY #30 tab 02/22/18 The following prescriptions were given: Atorvastatin Calcium [Lipitor] 20 mg PO QHS #30 tab Losartan Potassium [Cozaar] 100 mg PO DAILY #30 tab Primary Care Physician: Leo Doty DO [Primary Care Provider] - Please follow up with your Primary Care Physician in: in 2 weeks Test Results: Test results from this visit will be discussed in further detail at your follow- up appointment, if applicable.
--- NOTE | 2018-02-22 13:59 | PCM.DC.SUM ---
Discharge Date and Diagnosis Date of Admission: 02/22/18 Date of Discharge: 02/22/18 - Primary Discharge Diagnosis Active and Suspected Problems Near syncope (Acute) Symptomatic bradycardia (Acute) Near syncope (Acute) - Secondary Discharge Diagnosis Chronic Problems Hypertension (Chronic) Hyperlipidemia (Chronic) Hospital Course and Treatment Imaging Results: 02/22/18 10:00 Echo Complete [ECHO] Routine Summary of Care Provided: The patient is a 67 year old M with a history of hypertension, hyperlipidemia and abdominal aortic aneurysm and a small PFO was admitted on 02/22 with complaint of dizziness, headache when he woke up and then walk to bathroom and slumped while sitting on the toilet. Patient denies passing out or loss of consciousness. Patient was further admitted on telemetry for near syncope. Patient has recently seen a sales agent business services in [place] for abdominal aortic aneurysm and echo with bubble contrast and as per patient he has hole in the heart and AAA is not big enough but needs follow-up. EMS found him bradycardic and hypotensive. Was given a dose of atropine by EMS. After that his vitals remained stable, heart rate in 60s on the livestock buyer, sinus rhythm. Patient was seen by sales agent business services. Echo was done. Echo reported as EF 60% with normal diastolic. No regional wall motion abnormality. Mild concentric LVH. Patent foramen ovale. Recently, patient was on losartan 50 mg daily which is stopped because of dizziness and currently on amlodipine 5 mg daily. Credit Checker recommended losartan and continue atorvastatin. Fasting lipid profile within normal limit. Discharge medications discussed with the patient and was told amlodipine might be responsible for near syncope symptoms and losartan better choice for mild concentric LVH and AAA. Discharged home. Discharge meds reconciliation done. Follow-up with PCP and sales agent business services in [place]. [] - Physical Exam General: Alert, Oriented x3, Cooperative HEENT: Atraumatic, PERRLA, EOMI, Normocephalic Neck: Supple, No JVD, Negative Carotid Bruits Lungs: Clear to auscultation, Normal air movement Cardiovascular: Regular rate, Regular Rhythm, Normal S1, Normal S2, No murmurs Abdomen: Bowel Sounds Present, Soft, Non Tender, Non-Distended Extremities: No edema, Capillary Refill Less than 3 Seconds Skin: No rashes, No breakdown Musculoskeletal: No Tenderness to Palpation of Joints or Extremities Neurological: Cranial nerves II-XII grossly intact Psych/Mental Status: Normal Affect, Appropriate Vital Signs Temp Pulse Resp BP Pulse Ox 97.9 F 59 L 18 149/72 H 96 02/22/18 10:30 02/22/18 10:58 02/22/18 10:30 02/22/18 10:30 02/22/18 10:30 Oxygen Delivery Method Room Air Weight: 213 lb 6.519 oz Body Mass Index (BMI) 29.7 Intake and Output for Last 24 Hours 02/20/18 02/21/18 02/22/18 23:59 23:59 23:59 Intake Total 240 / 240 Output Total 475 / 475 Balance -235 / -235 Laboratory Tests Past 24 Hrs 02/22/18 02/22/18 02/22/18 04:14 04:14 04:55 WBC Cancelled Corrected WBC Cancelled RBC Cancelled Hgb Cancelled Hct Cancelled MCV Cancelled MCH Cancelled MCHC Cancelled RDW Cancelled RDW Differential Cancelled Plt Count Cancelled MPV Cancelled Immature Gran % (Auto) Cancelled Neut % (Auto) Cancelled Lymph % (Auto) Cancelled [place] % (Auto) Cancelled Eos % (Auto) Cancelled Baso % (Auto) Cancelled Immature Gran # (Auto) Cancelled Absolute Neuts (auto) Cancelled Absolute Lymphs (auto) Cancelled Absolute Monos (auto) Cancelled Total Counted Cancelled Neutrophils % (Manual) Cancelled Band Neutrophils % Cancelled Lymphocytes % (Manual) Cancelled Monocytes % (Manual) Cancelled Eosinophils % (Manual) Cancelled Basophils % (Manual) Cancelled Metamyelocytes % Cancelled Myelocytes % Cancelled Promyelocytes % Cancelled Blast Cells % Cancelled Plasma Cell % (Manual) Cancelled Other Cells % Cancelled Lymphocytes # Cancelled Nucleated RBCs/100 WBC Cancelled Differential Comment Cancelled Diff Path Review Cancelled Hypersegmented Neuts Cancelled Atypical Lymphocytes Cancelled Reactive Lymphocytes Cancelled Smudge Cells Cancelled Eosinophilia # Cancelled Basophilia # Cancelled Toxic Granulation Cancelled Dohle Bodies Cancelled Florecita Rods Cancelled Platelet Estimate Cancelled Plt Morphology Comment Cancelled RBC Morphology Cancelled Polychromasia Cancelled Hypochromasia Cancelled Poikilocytosis Cancelled Basophilic Stippling Cancelled Anisocytosis Cancelled Microcytosis Cancelled Macrocytosis Cancelled Spherocytes Cancelled Sickle Cells Cancelled Target Cells Cancelled Tear Drop Cells Cancelled Ovalocytes Cancelled Stomatocytes Cancelled [place] Bodies Cancelled Sarmad Cells Cancelled Bite Cells Cancelled Acanthocytes (Spur) Cancelled Rouleaux Cancelled Schistocytes Cancelled Sodium Cancelled 143 Potassium Cancelled 4.3 Chloride Cancelled 108 H Carbon Dioxide Cancelled 26.0 Anion Gap Cancelled 9 BUN Cancelled 23 H Creatinine Cancelled 1.24 Estim Creat Clear Calc Cancelled 59.88 Est GFR (MDRD) Af Amer Cancelled 74 Est GFR (MDRD) Non-Af Cancelled 61 BUN/Creatinine Ratio Cancelled 18.5 Glucose Cancelled 130 H Hemoglobin A1c Calcium Cancelled 8.8 Troponin I Cancelled < 0.015 Triglycerides Cholesterol LDL Cholesterol VLDL Cholesterol HDL Cholesterol 02/22/18 02/22/18 02/22/18 04:55 04:55 04:55 WBC 6.4 Corrected WBC RBC 4.48 L Hgb 14.0 Hct 41.9 MCV 93.5 MCH 31.3 MCHC 33.4 RDW 13.4 RDW Differential 44.7 H Plt Count 204 MPV 9.6 Immature Gran % (Auto) 0.200 Neut % (Auto) 63.2 Lymph % (Auto) 27.6 [place] % (Auto) 5.4 Eos % (Auto) 3.1 Baso % (Auto) 0.5 Immature Gran # (Auto) Absolute Neuts (auto) 4.0 Absolute Lymphs (auto) 1.75 Absolute Monos (auto) Total Counted Not Reportable Neutrophils % (Manual) Band Neutrophils % Lymphocytes % (Manual) Monocytes % (Manual) Eosinophils % (Manual) Basophils % (Manual) Metamyelocytes % Myelocytes % Promyelocytes % Blast Cells % Plasma Cell % (Manual) Other Cells % Lymphocytes # Nucleated RBCs/100 WBC Differential Comment Diff Path Review Hypersegmented Neuts Atypical Lymphocytes Reactive Lymphocytes Smudge Cells Eosinophilia # Basophilia # Toxic Granulation Dohle Bodies Florecita Rods Platelet Estimate Plt Morphology Comment RBC Morphology Polychromasia Hypochromasia Poikilocytosis Basophilic Stippling Anisocytosis Microcytosis Macrocytosis Spherocytes Sickle Cells Target Cells Tear Drop Cells Ovalocytes Stomatocytes [place] Bodies Sarmad Cells Bite Cells Acanthocytes (Spur) Rouleaux Schistocytes Sodium Potassium Chloride Carbon Dioxide Anion Gap BUN Creatinine Estim Creat Clear Calc Est GFR (MDRD) Af Amer Est GFR (MDRD) Non-Af BUN/Creatinine Ratio Glucose Hemoglobin A1c 6.1 Calcium Troponin I Triglycerides 101 Cholesterol 159 LDL Cholesterol 97 VLDL Cholesterol 20 HDL Cholesterol 42 Discharge Activity: May Not Drive - for few days till he better of dizziness Call your doctor if you observe: Fever of 101 or Higher, Shortness of breath, Dizziness, Swelling in the ankles, Chest pain, Increased palpitations (irregular heartbeat) Home Medications: Medications to take at Discharge Aspirin [Aspirin, Baby] 81 mg PO DAILY@0800 02/22/18 Atorvastatin Calcium 10 mg PO DAILY #1 tab 02/22/18 Losartan Potassium 50 mg PO DAILY #30 tab 02/22/18 Following Prescrptions Were Given to Patient: Atorvastatin Calcium 10 mg PO DAILY #1 tab Losartan Potassium 50 mg PO DAILY #30 tab Primary Care Physician: Leo Doty DO [Primary Care Provider] - Please follow up with your Primary Care Physician in: in 2 weeks Medical Necessity - Tobacco Use Smoking Status: Never smoker Meaningful Use Info Meaningful Use Diagnoses (Choose all that apply): None applicable Code Visit OBSV E&M: 60744 Observation care discharge
== END 2018-02-22 13:58 | disposition home or self-care (01) ==
LOC: ED 05:34 → PCU 06:38
PROVIDERS: Admitting Provider Student in an Organized Health Care Education/Training Program; Emergency Provider Emergency Medicine; Family Provider Family Medicine; PCP Family Medicine; Visit Provider Internal Medicine
DX: R55 Syncope and collapse (principal); R00.1 Bradycardia, unspecified; I10 Essential (primary) hypertension; E78.5 Hyperlipidemia, unspecified; I71.4 Abdominal aortic aneurysm, without rupture; Q21.1 Atrial septal defect; Z79.899 Other long term (current) drug therapy; Z79.82 Long term (current) use of aspirin
CPT/HCPCS: 36415; 70450; 71045; 80048; 80061; 83036; 84484; 85025; 93005; 93306; 96360; 96372; 97162; 97165; 99218; 99285; J7030; J7040; A4216; G0378

== ENCOUNTER 2019-03-14 03:41 | Emergency (ER) | payer MEDICARE, OTHER, SELFPAY ==
[2019-03-14 03:43] VITALS: BP 184/94; PULSE 75; RESP 11; TEMP 36.4; O2SAT 97; BMI 29.0
--- NOTE | 2019-03-14 04:00 | ED.RN ---
PULLED [facility] [facility] FOR
--- NOTE | 2019-03-14 04:03 | ED.VISSUMM ---
- ER Visit Summary Date of Service: 03/14/19 Chief Complaint: Left posterior lateral neck pain. History of Present Illness: The patient is a 68 M history of hypertension high cholesterol. Known AAA is being observed. Patient states that the football game tonight he had atraumatic left sided lateral neck and posterior shoulder pain. No chest pain. No shortness of breath. Denies any trauma. Denies any numbness or weakness to either his upper or lower extremities. No headache. Does not remember any could have done to injure his neck. Physical Examination: Well-appearing older male. Vital signs are stable and afebrile. His pulse ox 97% on room air no signs of hypoxia. H EENT exam unremarkable. No droop. Normal speech. Neck trachea is midline. No lymphadenopathy. He does have left lateral neck and trapezius tenderness is reproducible consistent with musculoskeletal pain. There is no redness or warmth. No discoloration. He has normal range of motion to his neck. Lungs clear to auscultation bilaterally. Heart regular rhythm no murmur. Chest were nontender. Abdomen soft nontender. Normal bowel sounds no peritoneal signs. Patient moving all 4 extremities. Neurovascular intact. Calves are nontender without edema or cords. He is equal symmetrical software solutions architect strength 5 out of 5. Dorsi plantarflexion intact. Equal symmetrical radial pulses. Neurologically is awake alert with no focal motor or sensory deficits. NIH score is 0. Test Results: EKG shows a sinus rhythm rate of 65 with no acute signs of ME or ischemia. Emergency Department Course and Treatment: Patient's history and exam are consistent with musculoskeletal left posterior neck pain consistent with muscle spasm. I did do an EKG which showed no acute abnormality and clinically this does not sound like cardiac disease. It does not sound like a dissection. Treatment Plan: Tylenol and/or Motrin for area not shower warm bath and massage. Follow-up if not improving return if worse. Disposition: Discharge Impression: Acute left neck musculoskeletal pain This note was generated with [employer] dictation software. It may contain incorrect words, spelling, and punctuation that were not noted in review of the chart prior to signing ED Disposition - Plan for ED Patient: Referrals: Leo Doty DO [Primary Care Provider] -
--- NOTE | 2019-03-14 04:08 | ED.DEP ---
ED Disposition - Plan for ED Patient: Disposition: Home or Assisted Living Instructions: NECK SPASM, No Trauma Referrals: Leo Doty DO [Primary Care Provider] - 3-5 Days if not improving Additional Instructions: Your EKG is normal. Your exam is normal except for reproducible pain to your left lateral neck and shoulder consistent with musculoskeletal pain. Tylenol and/or Motrin for pain. Hot shower and warm bath to relax the muscles in your neck and shoulder. Follow-up if not improving return to ER feeling worse.
[2019-03-14 04:12] VITALS: BP 158/87; PULSE 68; RESP 18; O2SAT 97
[2019-03-14 04:13] VITALS: BP 158/87; PULSE 67; RESP 20; O2SAT 97
--- NOTE | 2019-03-14 04:54 | EKG12_ITS ---
Test Reason : PAIN Blood Pressure : / mmHG Vent. Rate : 065 BPM Atrial Rate : 065 BPM P-R Int : 196 ms QRS Dur : 090 ms QT Int : 408 ms P-R-T Axes : 033 010 031 degrees QTc Int : 424 ms Normal sinus rhythm Normal ECG Confirmed by ISAIAH ALMEIDA, NASREEN ([id number]), society editor BLANCA SU ([id number]) on 03/16/2019 10:59:08 AM Referred By: JARRETT Confirmed By:NASREEN COLON MD
== END 2019-03-14 04:28 | disposition home or self-care (01) ==
PROVIDERS: Emergency Provider Emergency Medicine; Family Provider Family Medicine; PCP Family Medicine
DX: M54.2 Cervicalgia (principal); M25.512 Pain in left shoulder; I10 Essential (primary) hypertension; E78.00 Pure hypercholesterolemia, unspecified; I71.4 Abdominal aortic aneurysm, without rupture; Z79.82 Long term (current) use of aspirin; Z79.899 Other long term (current) drug therapy
CPT/HCPCS: 93005; 99282

== ENCOUNTER → 2020-03-26 13:12 | Outpatient (CLI) | payer MEDICARE, OTHER, SELFPAY ==
--- NOTE | 2020-03-26 13:18 | RAD_ITS ---
STUDY: X-RAY CHEST REASON FOR EXAM: Male, 69 years old. SOB on exertion x 4 months, tightness, pt takes HBP medication TECHNIQUE: PA and lateral views of the chest. COMPARISON: 02/22/2018 FINDINGS: The lungs are clear and expanded. There is no demonstrated pleural abnormality. Normal size heart. Normal mediastinum and linh. Normal visualized pulmonary arteries. Normal visualized aortic arch and descending thoracic aorta. Normal visualized thoracic spine. Normal visualized ribs, clavicles, and shoulders. There is no demonstrated abnormality of the visualized soft tissue structures of the upper abdomen. RAD/Chest PA and Lateral IMPRESSION: Normal x-ray examination of the chest. Electronically Signed: Dom Mayes MD at 16:50 EST Tel , Service support ,
== END ==
PROVIDERS: PCP Family Medicine; Referring Provider Family Medicine; Visit Provider Family Medicine
DX: R06.02 Shortness of breath (principal)
CPT/HCPCS: 71046

== ENCOUNTER → 2020-03-29 06:09 | Outpatient (CLI) | payer MEDICARE, OTHER, SELFPAY ==
--- NOTE | 2020-03-30 15:45 | STRESSREP_ITS ---
Stress Test Report Date: 03/29/2020 Procedure: Exercise tolerance test/imaging study Indications: Chest pain Consent: Per the patient Procedure: The patient exercised on a Javier protocol for 7 minutes and 21 seconds achieving a peak heart rate of 126 bpm (84% predicted maximal heart rate) with a peak blood pressure 184/60 mmHg and a peak MET capacity of 9 METs. The baseline ECG demonstrated normal sinus rhythm. The peak exercise ECG demonstrated sinus tachycardia with [address] depression in lead II and aVF and about 1 to 1.[address] depressions in V5 V6. There is also ST elevation in aVR. EKG during recovery revealed return of ST segments to baseline [There were no cardiac dysrhythmias pretest, during exercise, or recovery]. The functional capacity was considered normal for age. Patient had chest tightness with exertion. The examination was discontinued secondary to achieving target heart rate. Impression: 1. Technically adequate (percent predicted maximal heart rate greater than 85%) exercise tolerance test 2. Stress test is positive for exercise-induced EKG changes of ischemia 3. The test test is positive for exercise-induced chest pain 4. Functional capacity is normal for age 5. Nuclear images pending Myocardial perfusion imaging study: Technique: The patient was injected with 11.9 mCi of technetium 99m Cardiolite and subsequently rest SPECT Cardiolite nuclear imaging was obtained in the horizontal long, vertical long, and short axis views. The patient exercised on a Javier protocol. Please see above for details. The patient was injected with 34.3 mCi of technetium 99m Cardiolite and subsequently stress SPECT Cardiolite nuclear imaging was obtained in the horizontal long, vertical long, and short axis views. A gated Cardiolite study at peak stress was obtained. Interpretation: Rest and stress SPECT Cardiolite nuclear imaging status post realignment, normalization, and attenuation correction, demonstrates overall normal myocardial radioisotope uptake. The gated Cardiolite study demonstrates no significant regional wall motion abnormalities. The reported LVEF is 62%. Impression: 1. There is[normal myocardial radioisotope. However in the presence of EKG changes and chest pain on exertion this could represent balanced ischemia due to multivessel or left main coronary artery disease]. 2. The gated Cardiolite study reports an LVEF of 62%. This note was generated with [employer] software. It may contain incorrect words, spelling, and punctuation that were not noted in checking the note before signing.
== END ==
PROVIDERS: PCP Family Medicine
DX: R07.9 Chest pain, unspecified (principal)
CPT/HCPCS: 78452; 93017; A9500; A4216

== ENCOUNTER → 2020-04-27 11:47 | Outpatient (CLI) | payer MEDICARE, OTHER, SELFPAY ==
[2020-04-27 12:45] LABS: Absolute Lymphocyte Count 2.24 X10^3/uL (0.83-4.51); Absolute Neutrophil Count 3.7 X10^3/uL (2.0-7.7); Basophil# 0.05 X10^3/uL; Basophil% 0.7 % (0-1); Eosinophils% 2.9 % (0-5); Hematocrit 43.6 % (40-54); Hemoglobin 14.6 g/dL (13.0-16.5); Lymphocyte # 2.24 X10^3/ul (4.0); Mean Corp Hgb Conc 33.5 g/dL (32-36); Mean Corpuscular Hgb 31.1 pg (27.0-32.0); Mean Corpuscular Volume 92.8 fL (80-94); Mean Platelet Vol. 9.7 fl (6.2-12.0); Monocyte# 0.59 X10^3/uL; Monocyte% 8.7 % (0-10); NRBC Flagged by Analyzer 0 % (0-5); Neutrophil # 3.69 X10^3/uL (2.7-7.7); Neutrophil % 54.4 % (47-70); Platelet Count 263 K/mm3 (150-450); RBC Distribution Width CV 12.8 % (11.6-14.6); RBC Distribution Width SD 43.4 fl (35.1-43.9); White Blood Count 6.8 K/mm3 (4.4-11.0)
[2020-04-27 13:14] LABS: Anion Gap 6 (5-15); BUN 20 mg/dL (7-18); BUN/Creat Ratio 17.1 RATIO (10-20); Calcium,Total 8.9 mg/dL (8.5-10.1); Chloride 106 mmol/L (98-107); Creatinine, Serum 1.17 mg/dL (0.70-1.30); EST Glomerular Filtration Rate 65 mL/min (>60); Est Glom Filt Rate - Afr Amer 79 mL/min (>60); Glucose 68 mg/dL (74-106); Sodium Level 139 mmol/L (136-145)
== END ==
PROVIDERS: PCP Family Medicine; Referring Provider Internal Medicine Cardiovascular Disease; Visit Provider Internal Medicine Cardiovascular Disease
DX: Z01.810 Encounter for preprocedural cardiovascular examination (principal)
CPT/HCPCS: 36415; 80048; 85025

== ENCOUNTER → 2020-05-01 | Outpatient (CLI) | payer MEDICARE, OTHER, SELFPAY | END | disposition home or self-care (01) | LOC: LABSPEC 05-03 09:40 | PROVIDERS: PCP Family Medicine | DX: Z01.810 Encounter for preprocedural cardiovascular examination (principal); Z20.828 Contact with and (suspected) exposure to other viral communicable diseases | CPT/HCPCS: 87635; C9803; U0003 ==

== ENCOUNTER 2022-07-01 16:24 | Emergency (ER) | payer MEDICARE, OTHER, SELFPAY ==
[2022-07-01 16:25] VITALS: BP 205/102; PULSE 72; RESP 14; TEMP 36.8; O2SAT 95; BMI 31.9
[2022-07-01 16:32] VITALS: BP 182/85
--- NOTE | 2022-07-01 16:35 | EKG12_ITS ---
Test Reason : STROKE Blood Pressure : / mmHG Vent. Rate : 068 BPM Atrial Rate : 068 BPM P-R Int : 204 ms QRS Dur : 082 ms QT Int : 406 ms P-R-T Axes : 040 004 017 degrees QTc Int : 431 ms Normal sinus rhythm Inferior infarct , age undetermined Abnormal ECG Confirmed by DANIS ALMEIDA, MARTHA ([id number]), science editor BLANCA SU ([id number]) on 07/02/2022 9:04:54 AM Referred By: MARLY Confirmed By:MARTHA MOSCOSO MD
--- NOTE | 2022-07-01 16:35 | CT_ITS ---
We are attempting to reach an attending provider to discuss findings. An addendum with communication details will be sent when the communication is complete. INDICATION: Neuro deficit, acute, stroke suspected EXAMINATION: CT BRAIN - CT Head Stroke Protocol W/O Contrast Injection TECHNIQUE: Multiple axial images were obtained of the head without intravenous contrast. A radiation dose optimization technique was used for this scan. IV Contrast dosage and agent: None. COMPARISON: February 22, 2018 FINDINGS: BRAIN PARENCHYMA: No intra- or extra-axial hemorrhage. Moderate periventricular white matter hypointensity likely representing small vessel ischemic changes in patient of this age. No evidence of acute infarct. No intracranial mass or mass effect. There is preservation of the canales/white matter interface. Posterior fossa structures are unremarkable. CSF SPACES: Mild age-appropriate atrophy No hydrocephalus. Basal cisterns are patent. CALVARIUM, SKULL BASE, PARANASAL SINUSES AND MASTOID AIR CELLS: Large polyp or mucous retention cyst in the right sphenoid sinus. No discrete lytic or blastic abnormalities. ORBITS: Both globes, extraocular muscles, optic nerves and retrobulbar fat appear unremarkable. CT/STROKE Brain/Head without Cont IMPRESSION: Moderate periventricular white matter hypoattenuation most likely small vessel ischemic changes in patient of this age. No evidence for acute bleed. If concern for acute infarct MRI recommended Electronically Signed: Jordin Wallace MD at 16:53 EST ,
--- NOTE | 2022-07-01 16:36 | CT_ITS ---
We are attempting to reach an attending provider to discuss findings. An addendum with communication details will be sent when the communication is complete. STUDY: CTA HEAD AND NECK WITH CONTRAST REASON FOR EXAM: Male, 71 years old. Neuro deficit, acute, stroke suspected RADIATION DOSAGE (If Supplied By Facility): CTDIvol = ( 26.53 ) mGy, DLP = ( 832.27 ) mGycm TECHNIQUE: CT angiography was performed with a multi-detector CT scanner. Data acquisition was obtained from the skull base through the vertex following intravenous administration of IV 100mL [id number]-[id number]. MIP images were reconstructed from the axial data set. Post-processing of the angiographic images was performed, with multiplanar reformation and 3D reconstruction. Individualized dose optimization techniques were used for this CT. COMPARISON: No relevant priors. FINDINGS: Normal bilateral petrous carotid arteries. Minor calcific plaquing of the right cavernous carotid artery with a normal supraclinoid bifurcation. Minor calcific plaquing of the left cavernous carotid artery with a normal supraclinoid bifurcation. Normal right A1 segments of the anterior cerebral artery. Normal left A1 segments of the anterior cerebral artery. Anterior communicating artery not visualized consistent with normal variant.). Normal bilateral A2 segments of the anterior cerebral arteries. Normal right M1 and M2 segments of the middle cerebral arteries, with a normal M1 bifurcation. Normal left M1 and M2 segments of the middle cerebral arteries, with a normal M1 bifurcation. Posterior communicating arteries aren''t visualized consistent variant ). Normal bilateral vertebral arteries. Normal basilar artery with a normal basilar bifurcation. The visualized bilateral superior cerebellar (SCA) arteries are normal. Normal bilateral P1, P2 and visualized P3 segments of the posterior cerebral arteries. There is no demonstrated aneurysm of the [place] of [place]. AORTIC ARCH: Normal visualized aortic arch. Normal origins of the brachiocephalic, left common carotid, and left subclavian arteries. RIGHT CAROTID ARTERIES: Normal right common carotid artery (CCA). Minor calcific plaquing of the right common carotid bulb. Normal origin of the right internal carotid (ICA) artery without a hemodynamically significant stenosis. Normal visualized cervical portion of the right internal carotid artery. Normal origin of the right external carotid artery (ECA). LEFT CAROTID ARTERIES: Normal left common carotid artery (CCA). Mild calcific plaquing of the left common carotid bulb. Normal origin of the left internal carotid (ICA) artery without a hemodynamically significant stenosis. Normal visualized cervical portion of the left internal carotid artery. Normal origin of the left external carotid artery (ECA). VERTEBRAL ARTERIES: Normal bilateral vertebral arteries. CT/STROKE CTA Head AND Neck W/Con IMPRESSION: Mild atherosclerotic disease of the head and neck No evidence for hemodynamically significant stenosis or major vessel occlusion Electronically Signed: Jordin Wallace MD at 17:04 EST ,
--- NOTE | 2022-07-01 16:36 | NURSING ---
STROKE ALERT CALLED
--- NOTE | 2022-07-01 16:40 | EDS_ITS ---
HPI History of Present Illness Chief Complaint: Numb/Ting Informant: patient Onset/Context/Timing Onset: Today and Hours (1) Context: Sudden Onset Timing: Continuous Quality and Location: Positive for Right Face Paresthesia Onset: Approximately 1 hour prior to arrival Worsened by: Nothing Relieved by: Nothing Associated Symptoms Associated Symptoms: Positive for Headache; Negative for Nausea, Vomiting or Chest Pain Narrative Narrative: Patient presents with numbness and tingling to the right side of his mouth that began today. Patient states it began approximately 1 hour prior to arrival. Patient states he also has some blurred vision in the left side of his vision. Patient states he saw stars earlier but now he just has blurred vision in the left side of his vision. Patient does admit to a mild headache. Patient denies any difficulty with his speech. Patient denies any weakness of his arms or legs. Patient denies any nausea or vomiting. Patient denies any chest pain. [facility] Medical History (Updated 07/01/22 @ 18:[address] Karl Crenshaw DO) Hypertension Home Medications aspirin 81 mg chewable tablet 81 mg PO DAILY@[address] [facility] [place] [facility] 02/22/18 [History Last Taken 02/21/18] atorvastatin 10 mg tablet 10 mg PO DAILY #1 tab 02/22/18 [Rx Last Taken Unknown] losartan 50 mg tablet 50 mg PO DAILY #30 tabs 02/22/18 [Rx Last Taken Unknown] Allergy/AdvReac Type Severity Reaction Status Date / Time No Known Allergies Allergy Verified 07/01/22 16:28 Surgical History no surgical history no surgical history Social History Smoking Status: Never smoker ROS ROS ED Constitutional Constitutional ED: Denies chills or fever(s) Eyes Eyes: Reports blurry vision and change in vision; Denies diplopia ENT ENT ED: Denies rhinorrhea or sore throat Cardiovascular Cardiovascular: Denies chest pain or palpitations Respiratory/Chest Respiratory/Chest: Denies cough or dyspnea Gastrointestinal Gastrointestinal: Denies nausea or vomiting Genitourinary Genitourinary ED: Denies dysuria or hematuria Musculoskeletal Musculoskeletal: Denies back pain or neck pain Integumentary Reports rash; Denies abscess Neurologic Neurologic: Reports headache(s) and paresthesias; Denies weakness Allergic/Immunologic Allergic/Immunologic ED: Denies mouth swelling or urticaria EXAM Physical Exam Const Vital Signs: 07/01/22 16:25 07/01/22 16:32 07/01/22 16:50 Temperature 98.3 F Temperature Source Temporal Pulse Rate 72 Respiratory Rate 14 Blood Pressure 205/102 H 182/85 H Blood Pressure Mean 136 117 Pulse Ox 95 Oxygen Delivery Method Room Air Room Air 07/01/22 16:50 07/01/22 17:18 Temperature Temperature Source Pulse Rate 80 69 Respiratory Rate 20 H 18 Blood Pressure 168/84 H 151/77 H Blood Pressure Mean 112 101 Pulse Ox 96 95 Oxygen Delivery Method Room Air Room Air Positive well nourished and well developed General Appearance ED: well developed and NAD HEENT Reports moist mucous membranes Eyes PERRL and EOMs intact bilaterally Neck supple and no JVD Resp normal respiratory effort and clear to auscultation bilaterally Cardio regular rate, regular rhythm and no murmurs GI normal to inspection, nondistended, normoactive bowel sounds, soft to palpation and non-tender Palpation: soft Extremity normal to inspection General Extremety ED: Negative for edema or tenderness General Extremity: Negative for edema Neuro oriented x3, CN's II-XII intact bilaterally and no sensory deficits noted Neuro Narrative: [id number]-va-siue and iqmf-vw-uaic were normal. Christine Coma Scale: document GCS findings Spontaneous Obeys Commands Oriented 15 Sensorium / Orientation: alert Speech: speech normal Motor Exam: strength 5/5 throughout Psych mental status grossly normal Skin no rashes or lesions noted NIHSS NIHSS Initial: 1a Level of Consciousness: 0 1b LOC Questions (Score 2 if aphasic/stupor): 0 1c LOC Commands (Only score 1st attempt): 0 2 Best Gaze (If aphasic, use reflexive mvmts.): 0 3 Visual: 1 4 Facial Palsy: 0 5 Motor Arm Right (UN = amputation/fusion): 0 5 Motor Arm Left: 0 6 Motor Leg Right: 0 6 Motor Leg Left: 0 7 Limb ataxia (Only + if out of proportion): 0 8 Sensory (Aphasia/stupor=0 or 1, coma=2): 1 9 Best Language: 0 10 Dysarthria (mute, coma=2, intubated=UN): 0 11 Extinction and Inattention (only scored if +): 0 Total Score: 2 MDM MDM MDM Narrative Medical decision making narrative: Differential diagnosis includes stroke, intracranial bleeding, hypertensive urgency, migraine headache, and electrolyte abnormality. CT scan of the brain will be obtained to assess for stroke and intracranial abnormality. CTA of the head and neck will be obtained to assess for large vessel occlusion and peripheral arterial disease. EKG will be obtained to assess for cardiac dysrhythmia and cardiac ischemia. CBC will be obtained to assess for leukocytosis and anemia. Basic metabolic profile will be obtained to assess for electrolyte abnormality and renal function. High-sensitivity troponin will be obtained to assess for cardiac ischemia. PT with INR and PTT will be obtained to assess for coagulopathy. Lab Data Attestation: I reviewed the patient's lab results. Lab results narrative: CBC was reviewed and was within normal limits. PT was INR and PTT were reviewed and were within normal limits. Basic metabolic profile was reviewed and was within normal limits. High-sensitivity troponin was reviewed and was within normal limits. Labs: Laboratory Results - last 24 hr 07/01/22 07/01/22 07/01/22 16:30 16:30 16:30 WBC 8.9 RBC 4.94 Hgb 15.4 Hct 46.1 MCV 93.3 MCH 31.2 MCHC 33.4 RDW Std Deviation 45.5 H RDW Coeff of Mikayla 13.3 Plt Count 266 MPV 9.3 Immature Gran % (Auto) 0.500 Neut % (Auto) 74.2 H Lymph % (Auto) 17.6 L [place] % (Auto) 6.4 Eos % (Auto) 0.7 Baso % (Auto) 0.6 Absolute Neuts (auto) 6.6 Absolute Lymphs (auto) 1.56 Nucleated RBC % 0 PT 13.5 INR 1.1 APTT 27.6 Sodium 140 Potassium 3.9 Chloride 103 Carbon Dioxide 29.0 Anion Gap 8 BUN 27 H Creatinine 1.23 Estim Creat Clear Calc 56.97 Est GFR (MDRD) Af Amer 74 Est GFR (MDRD) Non-Af 61 BUN/Creatinine Ratio 22.0 H Glucose 187 H Calcium 9.3 Troponin I High Sens 9 POC Glucose 07/01/22 16:31 WBC RBC Hgb Hct MCV MCH MCHC RDW Std Deviation RDW Coeff of Mikayla Plt Count MPV Immature Gran % (Auto) Neut % (Auto) Lymph % (Auto) Forest % (Auto) Eos % (Auto) Baso % (Auto) Absolute Neuts (auto) Absolute Lymphs (auto) Nucleated RBC % PT INR APTT Sodium Potassium Chloride Carbon Dioxide Anion Gap BUN Creatinine Estim Creat Clear Calc Est GFR (MDRD) Af Amer Est GFR (MDRD) Non-Af BUN/Creatinine Ratio Glucose Calcium Troponin I High Sens POC Glucose 196 H Radiography Diagnostic Testing: Clinical Impression(s) from Imaging Studies Brain CT 07/01/22 16:35 IMPRESSION: Moderate periventricular white matter hypoattenuation most likely small vessel ischemic changes in patient of this age. No evidence for acute bleed. If concern for acute infarct MRI recommended Electronically Signed: Jordin Wallace MD at 16:53 EST , ADDENDUM: 07/01/22 1705 IMPRESSION: Moderate periventricular white matter hypoattenuation most likely small vessel ischemic changes in patient of this age. No evidence for acute bleed. If concern for acute infarct MRI recommended N.B. : The above Results were Read Back by Jordin Wallace MD to Karl Crenshaw DO, and understanding confirmed on 07/01/2022 16:58:10 (ET). 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 : The above Results were Read Back by Jordni Wallace MD to Karl Crenshaw DO , DO, and understanding confirmed on 07/01/2022 17:11:06 (ET). Electronically Signed: Jordin Wallace MD at 17:04 EST , Chest X-Ray 07/01/22 17:05 IMPRESSION: Normal x-ray examination of the chest. Electronically Signed: Jordin Wallace MD at 17:29 EST , CT scan of the brain was obtained. There is no acute intracranial abnormality. There are periventricular white matter changes likely from small vessel ischemic changes. This was interpreted by the radiologist and was also independently reviewed by myself. Portable 1 view chest x-ray was obtained. On my independent interpretation, lung benavidez are clear. There is normal cardiac silhouette. Bony thorax is normal. There is no acute process noted. Radiologist also interpreted the x- ray and agrees. CTA of the head and neck was obtained. On my interpretation, there is no evidence of large vessel occlusion. There is no leakage of contrast dye. There is no evidence for significant stenosis. Radiologist also interpreted the CTA and noted some mild atherosclerotic disease of the head and neck. Radiologist also agrees with my interpretation. EKG Initial EKG: Attestation: I personally reviewed and interpreted this EKG as follows: Interpretation: Sinus Rhythm (68), No Acute Injury Pattern and Non- Specific ST Changes Comments: EKG was obtained. On my independent interpretation, it showed a normal sinus rhythm with a rate of 68. AR interval, QRS interval, and QTc i ntervals were all normal. [place] was normal. There are nonspecific ST-T wave changes. Prior EKG tracings: available for review Prior: Unchanged (03/14/2019) Treatment and Re-Evaluation Narrative: Stroke neurologist evaluated the patient and felt that this is most likely from a migraine headache. Because of this, patient was given Reglan and Benadryl. Patient is feeling better on reevaluation. Patient states his headache and paresthesias have resolved. Patient states his vision is back to normal. Patient wants to go home. Patient was instructed to rest in a dark quiet room. Patient was instructed to follow-up with his primary care physician in 5 to 7 days. Patient understood and was agreeable with the plan. All questions were answered. Stroke Documentation Questions Stroke Team Activated: Yes Reviewed Inclusion/Exclusion criteria: Yes Was Patient considered for Endovascular Intervention?: No-CTA negative, determined not to be an endovascular candidate IV Thrombolytic Administered: No Discharge Plan Triage Chief Complaint: Numb/Ting ED Provider: Karl Crenshaw Dx/Rx/DC Orders Clinical Impression: Headache, migraine, Hypertension Instructions: ED, Migraine (Classical) Prescriptions: No Action aspirin 81 MG Tab.Chew 81 mg PO DAILY@0800 losartan 50 MG tablet 50 mg PO DAILY Qty: 30 0RF atorvastatin 10 MG tablet 10 mg PO DAILY Qty: 1 0RF Primary Care Provider: Leo Doty Referrals: Leo Doty DO [Primary Care Provider] - 3-5 Days Disposition Disposition: Home, Self Care
[2022-07-01 16:45] LABS: Absolute Lymphocyte Count 1.56 X10^3/uL (0.83-4.51); Absolute Neutrophil Count 6.6 X10^3/uL (2.0-7.7); Basophil# 0.05 X10^3/uL; Basophil% 0.6 % (0-1); Eosinophil# 0.06 X10^3/uL; Eosinophils% 0.7 % (0-5); Hematocrit 46.1 % (40-54); Hemoglobin 15.4 g/dL (13.0-16.5); Lymphocyte # 1.56 X10^3/ul (0.83-4.51); Lymphocyte % 17.6 % (19-41); Mean Corp Hgb Conc 33.4 g/dL (32-36); Mean Corpuscular Hgb 31.2 pg (27.0-32.0); Mean Corpuscular Volume 93.3 fL (80-94); Mean Platelet Vol. 9.3 fl (6.2-12.0); Monocyte# 0.57 X10^3/uL; Monocyte% 6.4 % (0-10); NRBC Flagged by Analyzer 0 % (0-5); Neutrophil # 6.59 X10^3/uL (2.7-7.7); Neutrophil % 74.2 % (47-70); Platelet Count 266 K/mm3 (150-450); RBC Distribution Width CV 13.3 % (11.6-14.6); RBC Distribution Width SD 45.5 fl (35.1-43.9); Red Blood Count 4.94 M/mm3 (4.6-6.2); White Blood Count 8.9 K/mm3 (4.4-11.0)
[2022-07-01 16:50] VITALS: BP 168/84; PULSE 80; RESP 20; O2SAT 96; BMI 31.9
[2022-07-01 16:50] LABS: Bedside Glucose 196 mg/dL (74-106)
[2022-07-01 16:57] LABS: International Normalized Ratio 1.1; Partial Thromboplast Time 27.6 Seconds (24.1-36.2); Prothrombin Time (Protime)PT. 13.5 SECONDS (11.7-14.9)
--- NOTE | 2022-07-01 17:05 | RAD_ITS ---
STUDY: X-RAY CHEST REASON FOR EXAM: Male, 71 years old. Neuro deficit, acute, stroke suspected TECHNIQUE: AP portable COMPARISON: March 26, 2020. FINDINGS: Nonspecific elevated right hemidiaphragm. No acute infiltration.. There is no demonstrated pleural abnormality. Normal size heart. Normal mediastinum and linh. Normal visualized pulmonary arteries. Normal visualized aortic arch and descending thoracic aorta. Normal visualized thoracic spine. Normal visualized ribs, clavicles, and shoulders. There is no demonstrated abnormality of the visualized soft tissue structures of the upper abdomen. No significant change since prior exam RAD/Chest 1 View IMPRESSION: Normal x-ray examination of the chest. Electronically Signed: Jordin Wallace MD at 17:29 EST ,
[2022-07-01 17:09] LABS: Anion Gap 8 (5-15); BUN 27 mg/dL (7-18); Calcium,Total 9.3 mg/dL (8.5-10.1); Chloride 103 mmol/L (98-107); Creatinine, Serum 1.23 mg/dL (0.70-1.30); EST Glomerular Filtration Rate 61 mL/min (>60); Est Glom Filt Rate - Afr Amer 74 mL/min (>60); Estimated Creatinine Clearance 56.97 ml/min; Glucose 187 mg/dL (74-106); Potassium 3.9 mmol/L (3.5-5.1); Sodium Level 140 mmol/L (136-145); Troponin-I HS 9 pg/mL (3.0-78.0)
[2022-07-01 17:18] VITALS: BP 151/77; PULSE 69; RESP 18; O2SAT 95
[2022-07-01] MEDS: DiphenhydrAMINE 50 MG/ML Syringe 25 MG IV (17:27)
[2022-07-01] MEDS: Metoclopramide 10 MG/2 ML Vial IV (17:27)
[2022-07-01 19:06] VITALS: BP 145/78; PULSE 84; RESP 20; O2SAT 93
== END 2022-07-01 19:13 | disposition home or self-care (01) ==
PROVIDERS: Emergency Provider Emergency Medicine; PCP Family Medicine; Visit Provider Emergency Medicine
DX: G43.909 Migraine, unspecified, not intractable, without status migrainosus (principal); I10 Essential (primary) hypertension; H53.8 Other visual disturbances; Z79.82 Long term (current) use of aspirin; Z79.899 Other long term (current) drug therapy
CPT/HCPCS: 70450; 70496; 70498; 71045; 80048; 82962; 84484; 85025; 85610; 85730; 93005; 96374; 96375; 99285; Q9967; A4216